=== PATIENT | female | born 1995 | race American Indian/Alaskan Native ===

== ENCOUNTER 2018-05-25 20:28 | Emergency (ER) | payer OTHER ==
[2018-05-25 20:52] VITALS: BP 130/67
== END 2018-05-26 00:10 | disposition left against medical advice (07) ==
LOC: ED 20:28
DX: N89.8 Other specified noninflammatory disorders of vagina (principal); Z53.21 Procedure and treatment not carried out due to patient leaving prior to being seen by health care provider